=== PATIENT | male | born 1960 | race Caucasian/White ===

== ENCOUNTER 2022-10-01 10:36 | Emergency (ER) | payer OTHER ==
[2022-10-01] MEDS ORDERED: Diphtheria,Pertussis(Acell),Tetanus Vaccine 0.5 ML Syringe IM ONE (11:02)
[2022-10-01] MEDS ORDERED: Lidocaine 1% 10 ML MDV INJECT ONE (11:02)
[2022-10-01] MEDS ORDERED: Bacitracin Oint 1 GM U/D Packet TOP ONE (11:03)
== END 2022-10-01 12:10 | disposition home or self-care (01) ==
LOC: DL.ED 10:36
DX: S62.631B Displaced fracture of distal phalanx of left index finger, initial encounter for open fracture (principal); F17.210 Nicotine dependence, cigarettes, uncomplicated; Z79.899 Other long term (current) drug therapy; Z23 Encounter for immunization; W31.2XXA Contact with powered woodworking and forming machines, initial encounter
CPT/HCPCS: 12001; 73140-F1; 90471; 90715; 99283-25

== ENCOUNTER 2022-10-15 16:23 | Emergency (ER) | payer OTHER | END 2022-10-15 16:33 | disposition home or self-care (01) | LOC: DL.ED 16:23 | DX: S61.211D Laceration without foreign body of left index finger without damage to nail, subsequent encounter (principal); Z48.02 Encounter for removal of sutures | CPT/HCPCS: 99281 ==

== ENCOUNTER 2023-02-11 09:19 | Emergency (ER) | payer SELFPAY | END 2023-02-11 10:03 | disposition home or self-care (01) | LOC: DL.ED 09:19 | DX: S06.0X0A Concussion without loss of consciousness, initial encounter (principal); W00.0XXA Fall on same level due to ice and snow, initial encounter | CPT/HCPCS: 99282; 99283 ==